=== PATIENT | female | born 1985 | race Caucasian/White ===

== ENCOUNTER 2016-09-04 15:51 | Emergency (ER) | payer OTHER ==
--- NOTE | 2016-09-04 16:12 | CPEKG ---
Heart Rate: 71 RR Interval: 845 P-R Interval: 172 QRSD Interval: 74 QT Interval: 388 QTC Interval: 422 P Ovid: 62 QRS Ovid: 64 T Wave Ovid: -25 EKG Severity - NORMAL ECG - EKG Impression: SINUS RHYTHM Electronically Signed By: Nel Figueroa 04-Sep-2016 19:46:12
[2016-09-04 16:19] VITALS: RESP 16
--- NOTE | 2016-09-04 16:20 | EDPHY ---
H & P Stated Complaint: palpitations/dizzyness for 3 days HPI/ROS: CHIEF COMPLAINT: Lightheadedness, palpitations HISTORY OF PRESENT ILLNESS: The patient is a normally healthy 31 y/o female complaining of recurrent episodes of dizziness, heart palpitations, and dyspnea for the last 3 days. She describes her dizziness as lightheadedness and almost near-syncopal. This is exacerbated by walking. She also feels like a heart beat is dropping out frequently, which causes twinges of pain. She has associated intermittent dyspnea and sweating. She notes she's felt nauseated with some abdominal cramping for the last week. She denies recent illness, fever, cough, cold, dysuria, back pain, weakness, paresthesias, diarrhea, or vomiting. She's experienced similar symptoms a few times over the last couple months . She is unsure if she could be . No recent travel, hormonal control , or family history of cardiac disease or VTE. REVIEW OF SYSTEMS: A ten point review of systems was performed and is negative with the exception of the items mentioned in the HPI. - Personal History LMP (Females 10-55): 22-28 Days Ago Current Tetanus/Diphtheria Vaccine: Unsure - Medical/Surgical History PMH: Denies Hx Asthma: No Hx Chronic Respiratory Disease: No Hx Diabetes: No Hx Cardiac Disease: No Hx Renal Disease: No Hx Cirrhosis: No Hx Alcoholism: No Hx HIV/AIDS: No Hx Splenectomy or Spleen Trauma: No Other PMH: denies - Social History Smoking Status: Never smoked Additional Social History: Nonsmoker. No alcohol or illicit drug use. Works at a [employer]. - Physical Exam Exam: General Appearance: Alert. Vital signs reviewed. 158/88, RR 22 at triage. Eyes: Pupils equal and round, no conjunctival injection, no discharge. Anicteric. ENT, Mouth: Mucous membranes are moist, no oropharyngeal erythema or edema. Neck: No lymphadenopathy, supple. Respiratory: Lungs are clear to auscultation; no wheezes, rales, or rhonchi. Cardiovascular: Regular rate and rhythm; no murmur, rub, or gallop.No ectopy. Gastrointestinal: Abdomen is soft and nontender, no masses or organomegaly, bowel sounds normal. Skin: Warm and dry, no rashes on exposed skin, normal color. Back: Nontender to palpation over the thoracolumbar spine. No CVAT. Extremities: No lower extremity edema, no calf tenderness or swelling. Neurological: Alert and oriented. Moving all four extremities easily and equally. Psychiatric: Normal affect. Constitutional: Initial Vital Signs Temperature (C) 36.5 C 09/04/16 15:53 Heart Rate 74 09/04/16 15:53 Respiratory Rate 22 H 09/04/16 15:53 Blood Pressure 158/88 H 09/04/16 15:53 O2 Sat (%) 100 09/04/16 15:53 O2 Delivery Mode Room Air Allergies/Adverse Reactions: No Known Allergies Allergy (Unverified 09/04/16 15:53) Home Medications: Medication Instructions Recorded Spironolactone 09/04/16 Medical Decision Making - Diagnostics EKG Interpretation: 12 lead EKG is interpreted in Trace master View by emergency department physician. ED Course/Re-evaluation: IV established. Labs drawn including CBC, CHEM, troponin, d-dimer, BHCG. The 12 lead EKG was interpreted by myself. Sinus rhythm rate 71. See hard copy and/or "tracemaster" electronic copy for interpretation. 1735: Reassessed patient and discussed work up. Labs and EKG are completely normal. no ectopy or cardiac arrhythmia noted on cardiac monitoring during her stay in the emergency department. Electrolytes are normal. It is certainly possible that she is experiencing an intermittent cardiac arrhythmia that is causing her symptoms. Holter monitoring would be required to assess for this. She is low risk for PE with a Wells score of 0 and has a negative D-dimer. I do not suspect volume depletion or internal bleeding. I've recommended following up with a manager administrative and PCP this week if her symptoms persist. Return precautions given. She is comfortable with this plan. - Data Points Laboratory Results: Laboratory Results 09/04/16 16:17 09/04/16 16:17 Departure - Departure Disposition: Home, Routine, Self-Care Clinical Impression: Lightheadedness Condition: Good Instructions: Near Syncope (ED), Lightheadedness (ED) Additional Instructions: Follow up with a manager administrative in the next week to further evaluate your symptoms if they persist. Try decreasing your dose of spironolactone and see if this helps. If so, talk with the physician that is prescribing this medicine. Follow up with a primary care provider to establish care in the next 1-2 weeks. Return to the ED for any worsening of condition. Referrals: Vibha Mulligan MD [Medical Doctor] - As per Instructions Oren Puga MD [Medical Doctor] - As per Instructions Report Scribed for: Nel Figueroa Report Scribed by: Teressa Mustafa Date of Report: 09/04/16 Time of Report: 16:29 Physician Review and Approval Statement: 09/04/16 16:20 Portions of this note were transcribed by the medical records auditor. I, Dr. Nel Figueroa, personally performed the history, physical exam, and medical decision- making; and confirmed the accuracy of the information in the transcribed note.
[2016-09-04 16:42] LABS: % IMMATURE GRANULYOCYTES 0.4 % (0.0-1.1); ABSOLUTE IMMATURE GRANULOCYTES 0.02 10^3/uL (0.00-0.10); ADD DIFF? NO; ADD MORPH? NO; ADD SCAN? NO; ATYPICAL LYMPHOCYTE FLAG 0 (0-99); FRAGMENT RBC FLAG 0 (0-99); HEMATOCRIT 42.1 % (38.0-47.0); HEMOGLOBIN 14.7 g/dL (12.6-16.3); LEFT SHIFT FLG 0 (0-99); LIPEMIA HEMOLYSIS FLAG 90 (0-99); MEAN CELL HEMOGLOBIN 31.8 pg (27.9-34.1); MEAN CELL HEMOGLOBIN CONCENTR. 34.9 g/dL (32.4-36.7); MEAN CELL VOLUME 91.1 fL (81.5-99.8); MEAN PLATELET VOLUME 10.3 fL (8.7-11.7); PLATELET CLUMPS FLAG 10 (0-99); PLATELET COUNT 246 10^3/uL (150-400); RED BLOOD CELL COUNT 4.62 10^6/uL (4.18-5.33); RED CELL DISTRIBUTION WIDTH 11.8 % (11.5-15.2)
[2016-09-04 16:50] LABS: ANION GAP 14 mEq/L (8-16); CALCIUM 9.5 mg/dL (8.5-10.4); CARBON DIOXIDE 17 mEq/l (22-31); CHLORIDE 107 mEq/L (97-110); CREATININE 0.7 mg/dL (0.6-1.0); GLOMERULAR FILTRATION RATE > 60; GLUCOSE 91 mg/dL (70-100); POTASSIUM 3.8 mEq/L (3.5-5.2); SODIUM 138 mEq/L (134-144)
[2016-09-04 17:01] LABS: TROPONIN I < 0.012 ng/mL (0-0.034)
[2016-09-04 17:56] VITALS: BP 138/78; PULSE 71; TEMP 97.9; O2SAT 98
== END 2016-09-04 17:55 | disposition home or self-care (01) ==
DX: R42 Dizziness and giddiness (principal)